=== PATIENT | male | born 1980 | race Caucasian/White ===

== ENCOUNTER 2024-12-04 08:16 | Outpatient (CLI) | payer BC, SELFPAY | END 2024-12-04 08:17 | disposition home or self-care (01) | LOC: LKVREF 08:18 | PROVIDERS: Visit Provider Family Medicine | DX: L40.9 Psoriasis, unspecified (principal); F32.A Depression, unspecified; Z13.6 Encounter for screening for cardiovascular disorders; Z13.29 Encounter for screening for other suspected endocrine disorder | CPT/HCPCS: 80053; 80061; 84443 ==